=== PATIENT | male | born 2005 | race Caucasian/White ===

== ENCOUNTER 2025-02-03 09:13 | Emergency (ER) | payer SELFPAY ==
[~2025-02-03] VITALS: Ht 165.1 cm; Wt 81.5 kg
[2025-02-03 09:34] VITALS: BP 124/82; TEMP 98.2; O2SAT 97
== END 2025-02-03 11:29 | disposition left against medical advice (07) ==
LOC: M ED 09:13
DX: Z53.21 Procedure and treatment not carried out due to patient leaving prior to being seen by health care provider (principal)

== ENCOUNTER 2025-08-10 16:17 | Emergency (ER) | payer OTHER, SELFPAY ==
[~2025-08-10] VITALS: Ht 167.6 cm; Wt 84.5 kg
[2025-08-10] MEDS: CETIRIZINE 10 MG TAB PO ONE (18:26)
[2025-08-10] MEDS: FAMOTIDINE 20 MG TAB PO ONE (18:26)
[2025-08-10 19:28] VITALS: BP 142/90; TEMP 98.6; O2SAT 97
[2025-08-10] MEDS ORDERED: MEDR4PAK PO (19:28)
[2025-08-10] MEDS ORDERED: ZYRT10TA12 PO (19:28)
[2025-08-10] MEDS ORDERED: PEPC40TA12 PO (19:28)
== END 2025-08-10 19:37 | disposition home or self-care (01) ==
LOC: M ED 16:17
DX: L50.9 Urticaria, unspecified (principal)
CPT/HCPCS: 96372; 99283; J2919